=== PATIENT | female | born 1990 | race Caucasian/White ===

== ENCOUNTER 2016-06-17 13:41 | Emergency (ER) | payer OTHER ==
[~2016-06-17] VITALS: Ht 157.5 cm; Wt 82.1 kg
[~2016-06-17 13:41] MED LIST: MOTRIN400 MG PO; PRENATAL VITAMI1 T10 PO
[2016-06-17 14:34] VITALS: BP 146/82
--- NOTE | 2016-06-17 14:40 | NUR ---
25F BIB COUSIN C/O CHILLS X 0300 THIS MORNING. PT C/O BL BREAST TENDERNESS, ACHING, 8/10, NON-RADIATING, X 3 DAYS; PT BREAST FEEDING AT THIS TIME; DENIES TAKING ANY MEDICATION TO RELIEVE PAIN; A&OX4, BL LUNG SOUNDS CLEAR, RR EVEN/UNLABORED, SKIN IS WARM/DRY/INTACT AT THIS TIME; PT DENIES N/V/D AT THIS TIME. PT RESTING IN CHAIR, ER MD MADE AWARE OF STATUS. WILL CONTINUE TO MONITOR.
[2016-06-17 14:50] VITALS: BP 146/82
--- NOTE | 2016-06-17 14:50 | NUR ---
Patient discharged with v/s stable. Written and verbal after care instructions given and explained. Patient alert, oriented and verbalized understanding of instructions. Ambulatory with to car. All questions addressed prior to discharge. ID band removed. Patient advised to follow up with PMD. Rx of KEFLEX 500MG & TYLENOL 325MG given. Patient educated on indication of medication including possible reaction and side effects. Opportunity to ask questions provided and answered.
== END 2016-06-17 14:50 | disposition home or self-care (01) ==
LOC: MED 13:41
DX: O91.22 Nonpurulent mastitis associated with the puerperium (principal); R03.0 Elevated blood-pressure reading, without diagnosis of hypertension